=== PATIENT | male | born 1985 | race African-American/Black ===

== ENCOUNTER 2017-03-22 15:43 | Emergency (ER) | payer MEDICAID ==
[~2017-03-22] VITALS: Ht 165.1 cm; Wt 69.0 kg
[2017-03-22] MEDS ORDERED: AZITHROMYCIN 500 MG TABLET PO ONE (19:00)
[2017-03-22] MEDS ORDERED: CEFTRIAXONE SODIUM 250 MG/VIAL IM ONE (19:00)
[2017-03-22 19:30] VITALS: BP 122/68
== END 2017-03-22 19:33 | disposition home or self-care (01) ==
LOC: ER 19:17
DX: A64 Unspecified sexually transmitted disease (principal); M54.5 Low back pain; M54.2 Cervicalgia; S39.012A Strain of muscle, fascia and tendon of lower back, initial encounter; V49.69XA Unspecified car occupant injured in collision with other motor vehicles in traffic accident, initial encounter; Y93.89 Activity, other specified; Y92.410 Unspecified street and highway as the place of occurrence of the external cause
CPT/HCPCS: 96372; 99283; J0696